=== PATIENT | male | born 1965 | race Caucasian/White ===

== ENCOUNTER 2017-01-23 21:33 | Emergency (ER) | payer OTHER ==
--- NOTE | ~2017-01-23 | CT71 ---
[facility] A Service of [facility] RADIOLOGY TEXT RESULTS PATIENT: CELESTE SALES LOCATION: SED : 65 UNIT #: [id number] AGE: [address]: Linda Rodriguez APRN SEX: M ORDER DR: [id number] [address] [address] [id number] MR#: [id number] Acc #: [id number] NAME: CELESTE SALES : 1965 SEX: M STUDY DATE/TIME: 01/23/2017 21:40 UNIT: SED ROOM: STUDY DESCRIPTION: CT Head Wo Contrast Attending Physician: Linda Rodriguez A.P.R.N. Ordering Physician: Linda Rodriguez A.P.R.N. Primary Care Physician: No Primary Care Physician MEDICAL IMAGING REPORT This report is preliminary unless electronic signature is present. EXAM Head CT without HISTORY Alcohol. Altered mental status and headache for 2 days. Patient drinks a fifth of vodka daily diagnosed with lung cancer a year ago. TECHNIQUE This CT exam was performed with one or more of the following radiation dose reduction techniques: automatic control, adjustment of mA and/or kV according to patient size, and iterative reconstruction. COMMENT Routine noncontrast head CT is reviewed. Noncontrast study is limited for evaluation for intracranial metastatic disease. There is atrophy. There is a partially calcified hyperdense structure seen at the right MCA bifurcation level which is highly suspicious for aneurysm. It is about 1 cm in dimension and should be further evaluated. Other extra-axial masses would be in the differential such as partially calcified meningioma but aneurysm is the most worrisome differential consideration at this time. There are vascular calcifications also at the base of the brain. Minor fluid or inflammatory change right side mastoid air cells. The paranasal sinuses where visualized are clear. There is no displaced fracture. Areas of white matter low attenuation noted most apparent in the deep to periventricular white matter with a small vessel insult at the anterior limb of the right internal capsule. No obvious acute cortical infarct but if this is of concern clinically follow-up imaging is recommended. At this time I would recommend the patient undergo an MRI of the brain with and without contrast and an MR angiogram [place] vasculature for evaluation of the finding at the right MCA bifurcation level. Nothing to suggest subarachnoid hemorrhage at this time. [facility] A Service of [facility] RADIOLOGY TEXT RESULTS PATIENT: CELESTE SALES LOCATION: SED : 65 UNIT #: [id number] AGE: [address]: Linda Rodriguez APRN SEX: M ORDER DR: IMPRESSION 1. There is a partially calcified rounded extraaxial mass seen at the expected location of the right MCA bifurcation about a cm in diameter. The appearance is quite concerning for an aneurysm. An aneurysm of this size is at risk for rupture. It should be further evaluated at this time with an MRI of the brain with and without contrast and an MR angiogram of the [place] vasculature if the patient is a candidate for MRI. Nothing to suggest acute appearing subarachnoid hemorrhage currently. A differential consideration would be a partially calcified extraaxial mass such as a meningioma but the rim-like nature of the calcifications are worrisome for aneurysm. 2. Otherwise there is atrophy considerably greater than expected for age group. Probable mild sequelae of small vessel disease noted. Atherosclerotic vascular calcifications at the base of the brain. STAT * RESULT Dictated by... Bia Layne M.D. THIS IS AN ELECTRONICALLY VERIFIED REPORT Bia Layne M.D. at 01/23/2017 11:19 PM MARGARITA/yayo TD: 01/23/2017 22:12 JOB #: [id number] MEDICAL IMAGING REPORT Page 1 of 1
[~2017-01-23 21:33] MED LIST: NO MEDICATIONS; PEN-VEE K PO; ULTRAM PO; VICODIN 5/1 TAB 5/50 PO
[2017-01-23 22:30] LABS: BASOPHIL% 0.7 % (0-2.5); EOSINOPHIL% 0.7 % (0.0-7.0); HEMATOCRIT 47.4 % (38.0-50.0); HEMOGLOBIN 16.1 gm/dL (13.0-16.0); LYMPHOCYTE# 2.3 X10e3 (1.0-3.5); LYMPHOCYTE% 36.4 % (17.0-45.0); MEAN CELL VOLUME 95.8 FL (83-96); MEAN CORPUSCULAR HEMOGLOBIN 32.5 PG (28-34); MEAN CORPUSCULAR HGB CONC 33.9 g/dL (30-36); MEAN PLATELET VOLUME 7.6 FL (6.5-11.5); MONOCYTE# 0.5 X10e3 (0-1.0); MONOCYTE% 7.9 % (3.0-12.0); NEUTROPHIL# 3.4 X10e3 (1.5-7.1); NEUTROPHIL% 54.3 % (40-75); PLATELET COUNT 232 X10e3 (140-420); RED BLOOD COUNT 4.95 X10e (3.90-5.60); RED CELL DISTRIBUTION WIDTH 15.7 % (11.0-15.5); WHITE BLOOD COUNT 6.3 X10e3 (4.0-10.5)
[2017-01-23 22:35] LABS: DIFF IND NO
[2017-01-23 22:42] LABS: ALBUMIN SERUM 4.2 g/dL (3.5-5.0); BILIRUBIN,TOTAL 0.1 mg/dL (0.2-2.0); BUN/CREATININE RATIO 8.88; CALCIUM SERUM 8.8 mg/dL (8.4-10.2); CREATININE SERUM 0.9 mg/dL (0.6-1.4); GLOM FILT RATE Estimated 98.5 mL/min (>60); POTASSIUM 3.5 mmol/L (3.5-5.1); PROTEIN TOTAL SERUM 4.6 g/dL (6.0-8.3)
[2017-01-23 22:46] LABS: PROTHROMBIN TIME (PATIENT) 11.7 SECONDS (9.5-12.4)
[2017-01-23 22:53] LABS: PARTIAL THROMBOPLASTIN TIME 28.5 SECONDS (25.6-38.1)
== END 2017-01-24 00:49 | disposition hospice, home (50) ==
LOC: SED 21:33
PROVIDERS: Nurse Practitioner
DX: R51 Headache (principal); F17.210 Nicotine dependence, cigarettes, uncomplicated; Z91.030 Bee allergy status; Z88.5 Allergy status to narcotic agent
CPT/HCPCS: 70450; 80053; 83690; 85025; 85610; 85730; 96374; 99285; G0480; J3411; J3475

== ENCOUNTER 2017-05-05 15:35 | Inpatient (IN) | payer OTHER ==
[~2017-05-05] VITALS: Ht 182.9 cm; Wt 71.7 kg
--- NOTE | ~2017-05-05 | HP ---
Unit #: [id number] #: [id number] Patient: CELESTE SALES [id number] [place] [address] [id number] I MR#: [id number] NAME: CELESTE SALES. ROOM: [facility] Age: 52 Sex: M Admission Date: 05/06/2017 : 1965 Attending Physician: Akira Godwin M.D. Admitting Physician: Akira Godwin M.D. Primary Care Physician: Primary Care Physician No HISTORY AND PHYSICAL HISTORY OF PRESENT ILLNESS Celeste is a 52 year old admitted to [address] [place] [address] because of his continued abuse of alcohol. He is detoxing. PAST MEDICAL HISTORY 1. Long history of alcohol abuse. 2. High blood pressure. 3. History of cerebral aneurysm. PAST SURGICAL HISTORY Cerebral aneurysm decompression. ALLERGIES Codeine SOCIAL HISTORY Smokes greater than one pack per day. Drinks a fifth or more of liquor on a daily basis. Denies illicit drug use. FAMILY HISTORY Medically noncontributory. REVIEW OF SYSTEMS CONSTITUTIONAL: No fever or chills. HEENT: Denies any sore throat, ear pain or runny nose. CARDIOVASCULAR: Denies chest pain, irregular heart rhythm or palpitations. CHEST: Denies shortness of breath or cough. No hemoptysis. GASTROINTESTINAL: Denies nausea, vomiting, diarrhea or chronic constipation. ENDOCRINE: Denies history of increased thirst or urination. No recent significant weight loss or gain. GENITOURINARY: Denies dysuria, frequency, or hematuria. SKIN: Denies any rashes. HEMATOLOGIC: Denies history of increased bleeding or bruising. MUSCULOSKELETAL: Denies any hot, swollen joints. No generalized muscle pain. NEUROLOGIC: Denies problems with vision or speech. No frequent, severe headaches. No numbness, tingling or weakness in any extremities. Denies loss of bladder or bowel control. CURRENT MEDICATIONS 1. Detox protocol Unit #: [id number] #: [id number] Patient: CELESTE SALES 2. Motrin 600 mg q. 6 hours p.r.n. 3. Celexa 20 mg q day PHYSICAL EXAMINATION GENERAL: Alert, thin, in no apparent distress. VITAL SIGNS: Blood pressure 122/74, heart rate 80, respirations 16, temperature 98.6. WEIGHT: 158 pounds. HEIGHT: 6'0". SKIN: Warm and dry without rash or lesion. HEENT: Normocephalic. TMs not viewed. Oral and nasal passages clear. Conjunctivae clear. Pupils equal, round and reactive to light and accommodation. Extraocular movements intact. NECK: Supple without lymphadenopathy or thyromegaly. HEART: Regular rate and rhythm without murmur. LUNGS: Clear. ABDOMEN: Soft, nontender. : Not done. EXTREMITIES: No evidence of cyanosis, clubbing or edema. Moves all extremities without focal deficit. NEUROLOGICAL: Grossly within normal limits. Cranial Nerves: II: Visual shafer are intact. III, IV AND : Extraocular movements are intact. Pupils are equal, round and reactive to light. V: Facial sensation is grossly normal. VII: Facial movements and expression are normal. VIII: Auditory acuity grossly intact. IX, X: Uvula is midline. Phonation is normal. XI: Patient shrugs shoulders and turns head normally. XII: Tongue protrudes in the midline. Sensory and Motor Function: Sensory and motor sensation is grossly normal. Motor: moves all extremities well. Coordination: Gait is normal. Deep Tendon Reflexes: Intact. IMPRESSION Psychiatric admission RECOMMENDATIONS PSYCHIATRIC: Per psychiatrist. MEDICAL: I see no contraindications to participating in facility's activities. MEDICAL PROGNOSIS Good. MEDICAL CONDITION Stable. Dictated by... Barbara GarciaAKetty. for Júnior Tristan/geovani TD: 05/06/2017 20:17 JOB #: [id number] Unit #: [id number] #: [id number] Patient: CELESTE SALES HISTORY AND PHYSICAL Page 1 of 1 X Gem Hawkins HISTORY AND PHYSICAL
--- NOTE | ~2017-05-05 | DS ---
Unit #: [id number] #: [id number] Patient: CELESTE SALES [id number] [place] [address] [id number] I MR#: [id number] NAME: CELESTE SALES. ROOM: [facility] Age: 52 Sex: M Admission Date: 05/06/2017 : 1965 Discharge Date: 05/09/2017 Attending Physician: Akira Godwin M.D. Primary Care Physician: Primary Care Physician No DISCHARGE SUMMARY REASON FOR ADMISSION Celeste is a 52-year-old man who presented in an intoxicated state reporting a need for detox. He had a history of hypertension and recent intracranial surgery, so he was cleared at our medical facility and then transferred back to [facility]. DIAGNOSTIC STUDIES LABORATORY RESULTS: Please see hospital chart. HOSPITAL COURSE The patient was admitted and placed on suicide precautions. The detox protocol was initiated and Catapres 0.1 mg every 6 hours was needed for hypertension. Citalopram 20 mg daily was continued for depression. He had an uneventful period of inpatient detox and his hypertension resolved without further need. We requested records from [facility] regarding his reports of recent aneurysm surgery, but we were unable to obtain these prior to discharge. On the date of discharge, the patient had a bright affect, good mood, and his vital signs have normalized. He was able to contract for safety and wished to follow up in the outpatient setting. DISCHARGE DIAGNOSES AXIS I: Alcohol dependence with withdrawal; major depressive disorder. AXIS II: No diagnosis. AXIS III: Hypertension and recent cerebral aneurysm surgery. AXIS IV: AXIS V: DISCHARGE INSTRUCTIONS Follow up with primary care physician and evening CD-IOP at [facility]. DISCHARGE MEDICATIONS Celexa 20 mg daily for depression. CONDITION AT DISCHARGE Improved. PROGNOSIS Fair to good. DIET AND ACTIVITY Unit #: [id number] #: [id number] Patient: CELESTE SALES Per primary care doctor. Dictated by... Akira Godwin M.D. [facility]/modl TD: 05/09/2017 23:58 JOB #: [id number] DISCHARGE SUMMARY Page 1 of 1 X Akira Godwin MD DISCHARGE SUMMARY
--- NOTE | ~2017-05-05 | PA ---
Unit #: [id number] #: [id number] Patient: CELESTE SALES [id number] [facility] [address] [place] [address] [id number] I MR#: [id number] NAME: CELESTE SALES. ROOM: [facility] Age: 52 Sex: M Admission Date: 05/06/2017 : 1965 Date of Assessment: Attending Physician: Akira Godwin M.D. Admitting Physician: Akira Godwin M.D. Primary Care Physician: Primary Care Physician No PSYCHIATRIC ASSESSMENT DATE OF ASSESSMENT 05/06/2017. INFORMANTS Patient, reliable; OLOP, reliable. CHIEF COMPLAINT Alcohol dependence. HISTORY OF PRESENT ILLNESS Celeste is a 52-year-old man, who presented to our hospital in an intoxicated state reporting the need for detox. He had a history of recent intracranial surgery per his report and hypertension and so he was sent for medical clearance and [facility]. PAST PSYCHIATRIC HISTORY One previous inpatient stay at this facility for alcohol detox. He is not currently taking psychiatric medications. FAMILY PSYCHIATRIC HISTORY The patient's mother and grandmother abused alcohol. SOCIAL HISTORY The patient denied any history of childhood abuse or neglect. He is a single heterosexual man with erratic employment and housing and ongoing financial stress. PAST MEDICAL HISTORY Significant for hypertension and reported recent aneurysm surgery. MEDICATIONS Citalopram 20 mg daily. ALLERGIES Codeine and bee stings. SUBSTANCE ABUSE HISTORY As noted above. MENTAL STATUS EXAMINATION Mr. Faust presented as a disheveled man, who appeared older than his stated age. He was cooperative with the examination. His speech was soft, but easily understood. His musculoskeletal examination was calm. Unit #: [id number] #: [id number] Patient: CELESTE SALES His mood was irritable with a congruent affect. He was alert and fully oriented. Memory and concentration were fair. Thought processes were goal directed with no active psychosis. He denied suicidal ideation, intent, or plan. Insight and judgment, fair. Fund of knowledge and abstraction, fair. ASSETS AND LIABILITIES The patient knows local resources and presents voluntarily for treatment. Liabilities include ongoing alcohol use and recent intracranial surgery. ADMITTING DIAGNOSES AXIS I: Alcohol dependence with withdrawal, uncomplicated; major depressive disorder. AXIS II: No diagnosis. AXIS III: Hypertension, recent cerebral aneurysm. AXIS IV: AXIS V: PSYCHIATRIC PLAN The patient was admitted and placed on suicide precautions. We will initiate the alcohol detox protocol and add Catapres 0.1 mg every 6 hours as needed for hypertension. We will attempt to get records from [facility] where the patient reports he had his intracranial surgery. He will enroll in psychotherapy groups and activities with dual diagnosis focus. Citalopram will be continued for depression. TREATMENT GOALS Resolution of intoxication, resolution of SI, improvement in insight, and improvement in coping skills. DISCHARGE PLAN Follow up with [facility]. ESTIMATED LENGTH OF STAY 5 days. Dictated by... Akira Godwin M.D. [facility]/ascencion TD: 05/08/2017 06:54 JOB #: [id number] PSYCHIATRIC ASSESSMENT Page 1 of 1 X Akira Godwin MD X PSYCHIATRIC ASSESSMENT
== END 2017-05-09 13:00 | disposition home or self-care (01) | DRG 897 ==
LOC: P2S 05-06 00:06
PROC: HZ2ZZZZ Detoxification Services for Substance Abuse Treatment (ICD-10-PCS; principal; 2017-05-06)
DX: F10.230 Alcohol dependence with withdrawal, uncomplicated (principal); I10 Essential (primary) hypertension; F32.9 Major depressive disorder, single episode, unspecified

== ENCOUNTER 2017-05-05 21:28 | Emergency (ER) | payer OTHER | END 2017-05-05 23:30 | disposition short-term general hospital (02) | LOC: CED 21:28 | DX: F10.10 Alcohol abuse, uncomplicated (principal); F17.200 Nicotine dependence, unspecified, uncomplicated; Z88.5 Allergy status to narcotic agent | CPT/HCPCS: 36415; 99284 ==

== ENCOUNTER 2017-06-02 23:28 | Emergency (ER) | payer OTHER ==
[~2017-06-02] VITALS: Ht 182.9 cm; Wt 71.7 kg
--- NOTE | ~2017-06-02 | CT71 ---
[facility] A Service [facility] RADIOLOGY TEXT RESULTS PATIENT: CELESTE SALES LOCATION: [facility] : [birth year] UNIT #: [id number] AGE: [address]: Ari Osullivan SEX: M ORDER DR: [id number] [id number] [facility]. [place], [place] [address] [id number] MR#: [id number] Acc #: [id number] NAME: CELESTE SALES : 1965 SEX: M STUDY DATE/TIME: 06/03/2017 5:25 UNIT: [facility] ROOM: STUDY DESCRIPTION: CT Head Wo Contrast Attending Physician: Ari Osullivan P.A.-C. Ordering Physician: Ari Osullivan P.A.-C. Primary Care Physician: Primary Care Physician No MEDICAL IMAGING REPORT This report is preliminary unless electronic signature is present EXAM CT head, noncontrast, 06/03/2017. HISTORY 52-year-old male in the ED after syncopal episode today prior to arrival. Passed out at bus stop. Ethanol intoxication is reported. He complains of headache and dizziness. Past history of brain surgery for aneurysm clipping. TECHNIQUE CT examination of the head without IV contrast. This CT exam was performed with one or more of the following radiation dose reduction techniques: Automatic exposure control, adjustment of mA and/or kV according to patient size, and iterative reconstruction. FINDINGS Since the previous study of 01/23/2017, the patient has undergone right frontotemporal craniotomy, and there are aneurysm clips in the region of previously demonstrated distal MCA aneurysm. There is a small subdural hematoma along the anterior and lateral aspects of the inner table of the frontal skull measuring up to 7 mm in maximum thickness anteriorly. No associated mass effect, cerebral edema or additional abnormality. No evidence of intracranial hemorrhage. Mild generalized cerebral atrophy is unchanged. Remainder of the exam is negative. IMPRESSION 1. Small subdural hematoma along the inner table of the right frontal skull anteriorly and laterally measuring up to 7 mm in thickness anteriorly. No associated cerebral edema, mass effect or additional [facility] A Service of [facility] RADIOLOGY TEXT RESULTS PAT[facility]: CELESTE SALES [id number] [birth year] UNIT #: [id number] AGE: [address]: Ari Osullivan PAC SEX: M ORDER DR: acute abnormality. No visible acute skull fracture. 2. Right frontotemporal craniotomy for aneurysm clip surgery, new since the previous study of 01/23/2017. Aneurysm clips in the region of a previously demonstrated distal MCA aneurysm. No hemorrhage is seen in this region. 3. Mild generalized cerebral cortical atrophy. I have discussed the findings by telephone with the ED provider prior to this dictation. STAT * RESULT Dictated by... Tigre Adams M.D. THIS IS AN ELECTRONICALLY VERIFIED REPORT Tigre Adams M.D. at 06/03/2017 9:57 PM NENO/gary TD: 06/03/2017 06:03 JOB #: [id number] MEDICAL IMAGING REPORT Page 1 of 1 COPY
[2017-06-03 06:34] LABS: BASOPHIL# 0.1 X10e3 (0-0.3); BASOPHIL% 1.2 % (0-2.5); DIFF IND NO; EOSINOPHIL% 0.3 % (0.0-7.0); HEMATOCRIT 40.1 % (38.0-50.0); HEMOGLOBIN 13.4 gm/dL (13.0-16.0); LYMPHOCYTE# 1.9 X10e3 (1.0-3.5); LYMPHOCYTE% 26.1 % (17.0-45.0); MEAN CELL VOLUME 97.4 FL (83-96); MEAN CORPUSCULAR HEMOGLOBIN 32.7 PG (28-34); MEAN CORPUSCULAR HGB CONC 33.5 g/dL (30-36); MEAN PLATELET VOLUME 7.7 FL (6.5-11.5); MONOCYTE# 0.7 X10e3 (0-1.0); MONOCYTE% 10.1 % (3.0-12.0); NEUTROPHIL# 4.5 X10e3 (1.5-7.1); NEUTROPHIL% 62.3 % (40-75); PLATELET COUNT 149 X10e3 (140-420); RED BLOOD COUNT 4.12 X10e (3.90-5.60); RED CELL DISTRIBUTION WIDTH 16.3 % (11.0-15.5); WHITE BLOOD COUNT 7.2 X10e3 (4.0-10.5)
[2017-06-03 07:03] LABS: BILIRUBIN, DIRECT 0.1 mg/dL (0.0-0.2); BILIRUBIN,INDIRECT 0.3 mg/dL (0.0-0.9); BILIRUBIN,TOTAL 0.4 mg/dL (0.2-2.0); CALCIUM SERUM 8.5 mg/dL (8.4-10.2); CREATININE SERUM 0.7 mg/dL (0.6-1.4); GLOM FILT RATE Estimated 108.5 mL/min (>60); POTASSIUM 3.5 mmol/L (3.5-5.1)
[2017-06-03 07:30] LABS: PARTIAL THROMBOPLASTIN TIME 28.7 SECONDS (23.5-31.3); PROTHROMBIN TIME (PATIENT) 10.7 SECONDS (10.0-11.7)
== END 2017-06-03 07:48 | disposition hospice, home (50) ==
LOC: CED 23:28
PROVIDERS: Physician Assistant
DX: I62.00 Nontraumatic subdural hemorrhage, unspecified (principal); Z72.89 Other problems related to lifestyle; F17.210 Nicotine dependence, cigarettes, uncomplicated; Z98.890 Other specified postprocedural states; Z88.5 Allergy status to narcotic agent; Z91.030 Bee allergy status
CPT/HCPCS: 70450; 80048; 80076; 85025; 85610; 85730; 99285; G0480